=== PATIENT | female | born 1990 ===

== ENCOUNTER 2020-05-10 07:48 | Outpatient (REF) | payer OTHER, SELFPAY ==
[2020-05-11 09:09] LABS: CT PCR NOT DETECTED (Not Detect.); NG PCR NOT DETECTED (Not Detect.)
[2020-05-14 21:02] LABS: HPV 16 RNA NOT DETECTED (NOT DETECTED); HPV mRNA E6/E7 rflx Detected (Not Detected)
== END 2020-05-10 07:49 | disposition home or self-care (01) ==
LOC: HO.LAB 07:48
PROVIDERS: Visit Provider Advanced Practice Midwife
DX: Z01.419 Encounter for gynecological examination (general) (routine) without abnormal findings (principal); Z20.2 Contact with and (suspected) exposure to infections with a predominantly sexual mode of transmission
CPT/HCPCS: 87491; 87591; 87624; 87625; 88141; 88142

== ENCOUNTER 2020-05-20 11:19 | Outpatient (REF) | payer OTHER, SELFPAY ==
--- NOTE | 2020-05-20 11:25 | US_ITS ---
EXAMINATION: PELVIC ULTRASOUND CLINICAL INFORMATION: Routine checking of intrauterine contraceptive device COMPARISON: None TECHNIQUE: Transabdominal and transvaginal pelvic ultrasound utilized FINDINGS: Uterus: 7.7 x 2.7 x 3.4 cm. IUD noted within the endometrial canal. Right ovary 3.3 x 2.5 x 1.8 cm with a volume of 7.8 mL. Left ovary: 6.2 x 6.2 x 4.4 cm with a volume of 80.9 mL. There is a 6 x 4 x 6 cm isoechoic mass left ovary. No definite vascularity within the mass. US/US pelvic complete IMPRESSION: IUD within the endometrial canal. Nonspecific left ovarian mass. Further workup as felt clinically necessary if this is an unknown mass
--- NOTE | 2020-05-20 11:25 | US_ITS ---
EXAMINATION: PELVIC ULTRASOUND CLINICAL INFORMATION: Routine checking of intrauterine contraceptive device COMPARISON: None TECHNIQUE: Transabdominal and transvaginal pelvic ultrasound utilized FINDINGS: Uterus: 7.7 x 2.7 x 3.4 cm. IUD noted within the endometrial canal. Right ovary 3.3 x 2.5 x 1.8 cm with a volume of 7.8 mL. Left ovary: 6.2 x 6.2 x 4.4 cm with a volume of 80.9 mL. There is a 6 x 4 x 6 cm isoechoic mass left ovary. No definite vascularity within the mass. US/US transvaginal IMPRESSION: IUD within the endometrial canal. Nonspecific left ovarian mass. Further workup as felt clinically necessary if this is an unknown mass
== END 2020-05-20 11:20 | disposition home or self-care (01) ==
LOC: HO.US 11:19
PROVIDERS: Visit Provider Advanced Practice Midwife
DX: Z30.431 Encounter for routine checking of intrauterine contraceptive device (principal)
CPT/HCPCS: 76830; 76856

== ENCOUNTER → 2020-05-24 13:45 | Outpatient (BNVA) | payer OTHER, SELFPAY | PROVIDERS: Visit Provider Advanced Practice Midwife | DX: Z76.89 Persons encountering health services in other specified circumstances (principal) ==

== ENCOUNTER 2021-05-12 07:32 | Outpatient (REF) | payer OTHER, SELFPAY ==
[2021-05-14 17:45] LABS: HPV mRNA E6/E7 rflx Not Detected (Not Detected)
== END 2021-05-12 07:33 | disposition home or self-care (01) ==
LOC: HO.LAB 07:32
PROVIDERS: Visit Provider Advanced Practice Midwife
DX: Z01.419 Encounter for gynecological examination (general) (routine) without abnormal findings (principal); Z11.51 Encounter for screening for human papillomavirus (HPV)
CPT/HCPCS: 87624; 88142